=== PATIENT | female | born 1955 | race African-American/Black ===

== ENCOUNTER 2022-01-13 17:23 | Emergency (ER) | payer SELFPAY ==
[~2022-01-13] VITALS: Ht 154.9 cm; Wt 59.4 kg
--- NOTE | 2022-01-13 17:26 | NUR ---
Placed in room 05 . Placed on monitoring tech, blood pressure machine and pulse oximeter. To gown for exam. Side rails up.
[2022-01-13 17:27] VITALS: BP_SYST 189
--- NOTE | 2022-01-13 17:29 | NUR ---
ER Dr. Marquez at bedside examining patient.
--- NOTE | 2022-01-13 17:40 | NUR ---
Pt BIB ambulance states that she was at a soccer game and started to feel dizzy. Pt was with her son when dizziness started and he denies any falls. Pt is only A & O to person, and son states that this is her baseline. Pt does not report any medical and surgical history and is not on any home medications. BP on arrival was 189/113. Safety precautions are in place.
--- NOTE | 2022-01-13 17:43 | NUR ---
patient off unit to ct scan
--- NOTE | 2022-01-13 17:54 | NUR ---
Pt back from CT, accompanied by staff.
--- NOTE | 2022-01-13 18:07 | NUR ---
Lab is at bedside.
--- NOTE | 2022-01-13 18:15 | NUR ---
patient moved to bed 3
[2022-01-13] MEDS: cloNIDine HCL 0.1 MG TABLET PO ONE (18:25)
[2022-01-13 18:33] LABS: EOSINOPHILS # (AUTO) 0.1 K/uL (0.0-0.4); EOSINOPHILS % (AUTO) 0.9 % (0.0-4.0); MEAN CORPUSCULAR HGB CONC 32 % (32-36); RED BLOOD CELL COUNT(AUTO) 5.72 MIL/uL (4.2-6.2); WHITE BLOOD COUNT (AUTO) 8.2 K/uL (4.8-10.8)
[2022-01-13 18:51] LABS: CALCIUM 9.2 mg/dL (8.4-11.0); CREATININE 1.11 mg/dL (0.55-1.30); POTASSIUM 3.7 mmol/L (3.5-5.1)
[2022-01-13 18:56] LABS: ALBUMIN 3.8 g/dL (3.4-4.8); TOTAL BILIRUBIN 0.4 mg/dL (0.0-1.0)
[2022-01-13 19:01] LABS: BASOPHILS # (AUTO) 0.1 K/uL (0.0-0.2); BASOPHILS % (AUTO) 0.8 % (0.0-2.0); HEMATOCRIT 38.9 % (36-48); HEMOGLOBIN 12.4 g/dL (12.0-16.0); LYMPHOCYTES # (AUTO) 1.8 K/uL (1.0-5.5); LYMPHOCYTES % (AUTO) 21.7 % (20.5-51.5); MEAN CORPUSCULAR HEMOGLOBIN 22 pg (27-31); MEAN CORPUSCULAR VOLUME 68 fL (79.0-98.0); MONOCYTES # (AUTO) 0.3 K/uL (0.0-1.0); NEUTROPHILS % (AUTO) 72.6 % (40.0-70.0); PLATELET COUNT (AUTO) 185 K/uL (130-430); RED CELL DISTRIBUTION WIDTH 16.4 % (9.0-15.0)
[2022-01-13 19:21] VITALS: BP_SYST 139
--- NOTE | 2022-01-13 19:23 | NUR ---
Dr. Marquez stated to hold medication due to improved BP. BP 139/93
--- NOTE | 2022-01-13 19:29 | NUR ---
1929Patient given written and verbal discharge instructions and verbalizes understanding. ER MD discussed with patient the results and treatment provided. Patient in stable condition. ID arm band removed. IV catheter removed intact and dressing applied, no active bleeding. Rx of clonodine given. Patient educated on pain management and to follow up with PMD. Pain Scale 0/10 Opportunity for questions provided and answered. Medication side effect fact sheet provided.
[2022-01-13] MEDS: LABETALOL 100 MG/ 20ML VIAL IVP ONE (19:39)
== END 2022-01-13 19:29 | disposition home or self-care (01) ==
LOC: SED 17:23
DX: R55 Syncope and collapse (principal); I16.0 Hypertensive urgency
CPT/HCPCS: 36415; 70450; 71045; 76376; 80053; 85025; 93005; 99285; J3490